=== PATIENT | female | born 1950 | race Caucasian/White ===

== ENCOUNTER 2016-12-02 13:30 | Emergency (ER) | payer OTHER ==
[~2016-12-02 13:30] MED LIST: AMBIEN10 M1 PO; AMBIEN10 MG PO; AMBIEN5 MG PO; ASACOL HD800 M1 PO; ASACOL400 MG PO; ATIVAN1 MG PO; ATIVAN2 M1 PO; ATORVASTATIN CA40 M1 PO; BENTYL10 MG PO; CALCIUM 600600 M2 PO; CARAFATE1 GM PO; CEPHALEXIN500 M1 PO; COMPAZINE10 MG PO; COZAAR100 MG PO; COZAAR25 MG PO; CRESTOR5 MG PO; DIFLUCAN100 MG PO; DIFLUCAN150 MG PO; DIOVAN40 MG PO; DOXEPIN HCL100 MG PO; DOXEPIN50 MG PO; FIORICET 325 MG1 TAB PO; FLAGYL500 MG PO; GLUCOPHAGE500 MG PO; HYDROCODONE BIT1 T11 PO; IBU800 M1 PO; LAVAZA; LEVOFLOXACIN500 MG PO; LEXAPRO20 MG PO; LOPID600 M1 PO; LOPID600 MG PO; MACROBID100 M1 PO; MULTI VITAMINS1 TAB PO; NASONEX0.05 MG/AC NS; NEURONTIN300 MG PO; PERCOCET 325 MG1 TA5 PO; PREMARIN V0.625 MG/G V; PREVACID30 M1 PO; PRILOSEC20 M2 PO; PRILOSEC20 MG PO; PROVENTIL0.09 MG/A1 INH; PROZAC20 MG PO; REGLAN; REGLAN10 MG PO; REGLAN5 MG PO; ROBITUSSIN DM 105 ML PO; TRAZODONE100 MG PO; TRICOR48 MG PO; VIBRAMYCIN100 MG PO; VICODIN 5/500 505 MG PO; VISTARIL50 MG PO; VITAMIN D1000 IU PO; VITAMIN D350000 UNIT PO; XANAX XR1 MG PO; ZANAFLEX CAPSULE4 MG PO; ZANAFLEX4 M1 PO; ZYPREXA7.5 MG PO; Zofran4 MG PO
== END 2016-12-02 17:02 | disposition expired ==
LOC: ED 13:30
DX: I46.9 Cardiac arrest, cause unspecified (principal); F41.9 Anxiety disorder, unspecified; F32.9 Major depressive disorder, single episode, unspecified; J44.9 Chronic obstructive pulmonary disease, unspecified; Z88.6 Allergy status to analgesic agent; Z79.899 Other long term (current) drug therapy; K21.9 Gastro-esophageal reflux disease without esophagitis; I10 Essential (primary) hypertension; K58.9 Irritable bowel syndrome, unspecified; E11.9 Type 2 diabetes mellitus without complications; F17.200 Nicotine dependence, unspecified, uncomplicated; Z90.49 Acquired absence of other specified parts of digestive tract